=== PATIENT | female | born 2000 | race Caucasian/White ===

== ENCOUNTER 2022-04-11 05:44 | Inpatient (IN) ==
[2022-04-11] MEDS ORDERED: EPHEDrine 50 MG/ML VIAL IVP PRN (06:34)
[2022-04-11] MEDS ORDERED: Epidural Premix (fent/bupiv) 110 ML EP SCH (06:45)
[2022-04-11] MEDS ORDERED: Metoclopramide 10 MG/2 ML VIAL IVP PRN (07:06)
[2022-04-11] MEDS ORDERED: Famotidine 20 MG/2 ML VIAL IVP PRN (07:06)
[2022-04-11] MEDS ORDERED: Naloxone 0.4 MG/ML INJ IVP PRN (07:06)
[2022-04-11] MEDS ORDERED: *HR* Nalbuphine 10 MG/ML AMPUL IV PRN (07:06)
[2022-04-11] MEDS ORDERED: Oxytocin 30 UNIT/503 ML BAG IVC SCH ×2 (07:15→12:44)
[2022-04-11] MEDS ORDERED: Ringers Solution, Lactated 1,000 ML IVC SCH (07:15)
[2022-04-11] MEDS ORDERED: miSOPROStoL 25 MCG TABLET PO PRN (07:18)
[2022-04-11 07:47] LABS: Basophils % 0.4 %; Eosinophils # 0.2 K/mcL (0.0-0.6); Eosinophils % 1.4 %; Hematocrit 30.9 % (35.3-44.9); Hemoglobin 9.5 g/dL (11.5-15.4); Immature Granulocytes % 1.2 % (0-4); Lymphocytes # 2.6 K/mcL (0.6-4.6); Lymphocytes % 22.7 %; Mean Corpuscular HGB Conc 30.7 g/dL (31.6-35.5); Mean Corpuscular Hemoglobin 24.1 pg (28.0-33.3); Mean Corpuscular Volume 78.4 fL (83.0-100.0); Monocytes # 0.8 K/mcL (0.0-1.3); Monocytes % 6.9 %; Neutrophils # 7.6 K/mcL (1.6-8.9); Platelet Count 264 K/mcL (140-400); Red Blood Count 3.94 M/mcL (3.82-4.97); Red Cell Distribution Width 15.9 % (11.5-14.5); Segmented Neutrophils % 67.4 %; White Blood Count 11.2 K/mcL (4.3-11.1)
[2022-04-11] MEDS ORDERED: Ondansetron ODT 4 MG TAB.RAPDIS SL PRN (12:44)
[2022-04-11] MEDS ORDERED: Benzocaine/Menthol 56 GM AEROSOL SPRAY TP PRN (12:44)
[2022-04-11] MEDS ORDERED: Lanolin 7 G OINT...G. TP PRN (12:44)
[2022-04-11 12:52] LABS: Amphetamine Screen,Urine Negative ng/mL (Cutoff=1000); Barbiturate Screen,Urine Negative ng/mL (Cutoff=200); Benzodiazepines Screen,Urine Negative ng/mL (Cutoff=200); Cannabinoid Screen,Urine Negative ng/mL (Cutoff = 50); Cocaine Screen,Urine Negative ng/mL (Cutoff= 300); Opiate Screen,Urine Negative ng/mL (Cutoff=300); Phencyclidine Screen,Urine Negative ng/mL (Cutoff=25)
[2022-04-11] MEDS: Ibuprofen 600 MG TABLET PO SCH ×2 (16:34→22:00)
[2022-04-11] MEDS: Acetaminophen 325 MG TABLET PO SCH (22:00)
[2022-04-12] MEDS: Acetaminophen 325 MG TABLET PO SCH (04:28)
[2022-04-12] MEDS: Ibuprofen 600 MG TABLET PO SCH ×2 (04:28→07:54)
[2022-04-12 07:54] VITALS: BP 112/72; PULSE 92; TEMP 97.9; O2SAT 98
[2022-04-12] MEDS ORDERED: Etonogestrel 68 MG IMPLANT IL ONE (08:12)
[2022-04-12] MEDS ORDERED: Prenatal Vit/FA 1 EACH TABLET PO SCH (09:00)
== END 2022-04-12 12:55 | disposition home or self-care (01) | DRG 807 ==
LOC: 1NENULAB 05:44 → 1NENUOBS 16:01
PROVIDERS: ADMIT Registered Nurse; ATTEND Registered Nurse